=== PATIENT | male | born 1955 | race Caucasian/White ===

== ENCOUNTER 2020-12-13 14:48 | Inpatient (IN) | payer MEDICARE ==
[2020-12-13] MEDS ORDERED: Sodium Chloride 0.9% 10 ML Syringe FLUSH PRN (15:21)
--- NOTE | 2020-12-13 16:03 | CR ---
Chest: Portable view of the chest was obtained. Comparison: No prior chest imaging is available. Increased density is seen within both lung bases. Upper lungs appear to be clear. Heart size is normal. Tortuous thoracic aorta is seen. No discrete osseous abnormality is appreciated. Impression: 1. Increased density within both lung bases suspicious for bibasilar pneumonia. Diagnostic code #3
[2020-12-13] MEDS ORDERED: Potassium Chloride 20 MEQ Tab.ER PO ONE (16:28)
[2020-12-13] MEDS ORDERED: Potassium Chloride 10 MEQ in Premix Bag 1 BAG IV SCH (16:30)
[2020-12-13] MEDS ORDERED: cefTRIAXone 2 GM in Sodium Chloride 0.9% 100 ML IV ONE (16:34)
[2020-12-13] MEDS ORDERED: Ondansetron 4 MG Tab.DIS PO PRN (16:38)
[2020-12-13] MEDS ORDERED: Docusate Sodium 100 MG Cap PO PRN (16:38)
[2020-12-13] MEDS ORDERED: Morphine 2 MG/ML SYRINGE IVPUSH PRN (16:38)
[2020-12-13] MEDS ORDERED: Acetaminophen 325 MG Tab PO PRN (16:38)
[2020-12-13] MEDS: Sodium Chloride 0.9% with KCl 1,000 ML IV SCH (16:39)
--- NOTE | 2020-12-13 16:49 | EDM.PDOC ---
ED HPI GENERAL MEDICAL PROBLEM - General Chief Complaint: Respiratory Problem Stated Complaint: LOW OXYGEN/SENT BY [facility] Time Seen by Provider: 12/13/20 15:04 Source of Information: Reports: Patient, RN Notes Reviewed History Limitations: Reports: No Limitations - History of Present Illness INITIAL COMMENTS - FREE TEXT/NARRATIVE: Patient is a 65-year-old male presenting to the emergency department with complaints of a 1 week history of congestion, cough, shortness of breath, decreased appetite, and fever. He was around a individual who had nasal congestion on Friday of last week and feels that he may have caught something from him. He also feels that recent smoke in the air contributed to his illness. He is a former smoker and states that he gets bronchitis a year and history of antibiotics and then it clears up. He denies loss of taste and smell but states that he has not really eaten anything for a week due to loss of appetite. Reports fevers as high as 102.0 at home. Denies any chest pain. He has had no nausea, vomiting, or diarrhea. - Related Data Allergies Allergy/AdvReac Type Severity Reaction Status Date / Time No Known Allergies Allergy Verified 12/13/20 15:16 Home Meds: Home Meds Aspirin [Halfprin] 81 mg PO DAILY 12/13/20 [History] Metoprolol Tartrate 25 mg PO BID 12/13/20 [History] Non-Formulary Medication [NF Drug] 20 ml PO DAILY 12/13/20 [History] Simvastatin 40 mg PO BEDTIME 12/13/20 [History] amLODIPine [Norvasc] 10 mg PO DAILY 12/13/20 [History] Past Medical History Cardiovascular History: Reports: High Cholesterol, Hypertension Social & Family History - Tobacco Use Tobacco Use Status *Q: Current Every Day Tobacco User Years of Tobacco use: 40 Packs/Tins Daily: 0.5 - Recreational Drug Use Recreational Drug Use: No ED ROS GENERAL - Review of Systems Review Of Systems: See Below Constitutional: Reports: Fever, Chills, Fatigue, Decreased Appetite HEENT: Reports: Sinus Problem Respiratory: Reports: Shortness of Breath, Cough Cardiovascular: Reports: Dyspnea on Exertion, Orthopnea. Denies: Chest Pain Endocrine: Reports: No Symptoms GI/Abdominal: Reports: Decreased Appetite. Denies: Abdominal Pain, Diarrhea, Nausea, Vomiting : Reports: No Symptoms Musculoskeletal: Reports: No Symptoms Skin: Reports: No Symptoms Neurological: Reports: No Symptoms Psychiatric: Reports: No Symptoms Hematologic/Lymphatic: Reports: No Symptoms Immunologic: Reports: No Symptoms ED EXAM, GENERAL - Physical Exam Exam: See Below Exam Limited By: No Limitations General Appearance: Alert, WD/WN, No Apparent Distress Neck: Normal Inspection, Supple, Non-Tender, Full Range of Motion Respiratory/Chest: No Respiratory Distress, No Accessory Muscle Use, Chest Non- Tender, Rhonchi (throughout bilateral lungs) Cardiovascular: Normal Peripheral Pulses, Regular Rate, Rhythm, No Edema, No Gallop, No JVD, No Murmur, No Rub GI/Abdominal: Normal Bowel Sounds, Soft, Non-Tender, No Organomegaly, No Distention, No Abnormal Bruit, No Mass Neurological: Alert, Oriented, CN II-XII Intact, Normal Cognition, Normal Gait, Normal Reflexes, No Motor/Sensory Deficits Psychiatric: Normal Affect, Normal Mood Skin Exam: Warm, Dry, Intact, Normal Color, No Rash Course - Vital Signs Last Recorded V/S: Last Vital Signs Temp 98.8 F 12/14/20 20:14 Pulse 64 12/14/20 22:03 Resp 20 12/14/20 20:14 BP 144/93 H 12/14/20 22:03 Pulse Ox 91 L 12/14/20 22:09 - Orders/Labs/Meds Orders: Active Orders 24 hr Category Date Time Status BASIC METABOLIC PANEL,BMP [CHEM] AM Lab 12/15/20 05:11 Ordered BASIC METABOLIC PANEL,BMP [CHEM] AM Lab 12/16/20 05:11 Ordered BASIC METABOLIC PANEL,BMP [CHEM] AM Lab 12/17/20 05:11 Ordered CBC WITH AUTO DIFF [HEME] AM Lab 12/15/20 05:11 Ordered CBC WITH AUTO DIFF [HEME] AM Lab 12/16/20 05:11 Ordered CBC WITH AUTO DIFF [HEME] AM Lab 12/17/20 05:11 Ordered MAGNESIUM [CHEM] AM Lab 12/15/20 05:11 Ordered MAGNESIUM [CHEM] AM Lab 12/16/20 05:11 Ordered MAGNESIUM [CHEM] AM Lab 12/17/20 05:11 Ordered Famotidine [Pepcid] Med 12/14/20 09:00 Active 20 mg IVPUSH DAILY Medication Orders Acetaminophen (Acetaminophen 325 Mg Tab) 650 mg PO Q4H PRN PRN Reason: Pain (Mild 1-3)/fever Acetylcysteine (Acetylcysteine 20% 200 Mg/Ml 4 Ml Nebulizer Soln Sdv) 800 mg NEB Q6H [facility] Last Admin: 12/14/20 22:08 Dose: 800 mg Documented by: Admin: 12/14/20 17:17 Dose: 800 mg Documented by: Admin: 12/14/20 11:26 Dose: 800 mg Documented by: JAMAL Amlodipine Besylate (Amlodipine 5 Mg Tab) 10 mg PO DAILY [facility] Last Admin: 12/14/20 09:51 Dose: 10 mg Documented by: TIFFANY Aspirin (Aspirin 81 Mg Tab.Ec) 81 mg PO DAILY [facility] Last Admin: 12/14/20 09:50 Dose: 81 mg Documented by: TIFFANY Docusate Sodium (Docusate Sodium 100 Mg Cap) 100 mg PO Q12H PRN PRN Reason: Constipation Famotidine (Famotidine 20 Mg/2 Ml Sdv) 20 mg IVPUSH DAILY [facility] Last Admin: 12/14/20 08:24 Dose: 20 mg Documented by: TIFFANY Guaifenesin (Guaifenesin 600 Mg Tab.Er) 600 mg PO Q12H [facility] Last Admin: 12/14/20 22:03 Dose: 600 mg Documented by: Admin: 12/14/20 10:32 Dose: 600 mg Documented by: TIFFANY Heparin Sodium (Porcine) (Heparin Sodium 5,000 Units/Ml Vial) 5,000 units SUBCUT Q8H [facility] Last Admin: 12/14/20 22:04 Dose: 5,000 units Documented by: Admin: 12/14/20 16:18 Dose: 5,000 units Documented by: Admin: 12/14/20 08:24 Dose: 5,000 units Documented by: Admin: 12/14/20 00:35 Dose: 5,000 units Documented by: Admin: 12/13/20 18:21 Dose: 5,000 units Documented by: AMANDA Azithromycin 500 mg/ Sodium (Chloride) 250 mls @ 250 mls/hr IV Q24H [facility] Last Admin: 12/14/20 18:22 Dose: 250 mls/hr Documented by: Infusion: 12/13/20 19:21 Dose: 250 mls/hr Documented by: Admin: 12/13/20 18:21 Dose: 250 mls/hr Documented by: AMANDA Ceftriaxone Sodium 2 gm/ (Sodium Chloride) 100 mls @ 200 mls/hr IV Q24H [facility] Stop: 12/18/20 16:59 Last Admin: 12/14/20 16:19 Dose: 200 mls/hr Documented by: TIFFANY Metoprolol Tartrate (Metoprolol Tartrate 50 Mg Tab) 25 mg PO BID [facility] Last Admin: 12/14/20 22:03 Dose: 25 mg Documented by: Admin: 12/14/20 09:51 Dose: 25 mg Documented by: TIFFANY Ondansetron HCl (Ondansetron 4 Mg Tab.Dis) 4 mg PO Q4H PRN PRN Reason: nausea, able to take PO Simvastatin (Simvastatin 40 Mg Tab) 40 mg PO BEDTIME [facility] Last Admin: 12/14/20 22:03 Dose: 40 mg Documented by: KELVIN Sodium Chloride (Sodium Chloride 0.9% 10 Ml Syringe) 10 ml FLUSH ASDIRECTED PRN PRN Reason: Keep Vein Open Last Admin: 12/13/20 15:36 Dose: 10 ml Documented by: PETE Labs: Laboratory Tests 12/13/20 12/13/20 12/13/20 Range/Units 15:11 15:17 15:17 WBC 13.79 H (4.23-9.07) K/mm3 RBC 4.52 L (4.63-6.08) M/mm3 Hgb 14.6 (13.7-17.5) gm/dl Hct 42.6 (40.1-51.0) % MCV 94.2 H (79.0-92.2) fl MCH 32.3 H (25.7-32.2) pg MCHC 34.3 (32.2-35.5) g/dl RDW Std Deviation 46.5 H (35.1-43.9) fL Plt Count 280 (163-337) K/mm3 MPV 10.7 (9.4-12.3) fl Neut % (Auto) 79.4 H (34.0-67.9) % Lymph % (Auto) 8.9 L (21.8-53.1) % Bullock % (Auto) 10.7 (5.3-12.2) % Eos % (Auto) 0.4 L (0.8-7.0) Baso % (Auto) 0.3 (0.1-1.2) % Neut # (Auto) 10.94 H (1.78-5.38) K/mm3 Lymph # (Auto) 1.23 L (1.32-3.57) K/mm3 Bullock # (Auto) 1.48 H (0.30-0.82) K/mm3 Eos # (Auto) 0.06 (0.04-0.54) K/mm3 Baso # (Auto) 0.04 (0.01-0.08) K/mm3 Manual Slide Review Abnormal smear D-Dimer, Quantitative 0.62 H (0.19-0.50) mg/L Sodium (136-145) mEq/L Potassium (3.5-5.1) mEq/L Chloride (98-107) mEq/L Carbon Dioxide (21-32) mEq/L Anion Gap (5-15) BUN (7-18) mg/dL Creatinine (0.7-1.3) mg/dL Est Cr Clr Drug Dosing mL/min Estimated GFR (MDRD) (>60) mL/min BUN/Creatinine Ratio (14-18) Glucose (70-99) mg/dL Calcium (8.5-10.1) mg/dL Total Bilirubin (0.2-1.0) mg/dL AST (15-37) U/L ALT (16-63) U/L Alkaline Phosphatase (46-116) U/L Troponin I (0.00-0.056) ng/mL C-Reactive Protein (<1.0) mg/dL NT-Pro-B Natriuret Pep (0-125) pg/mL Total Protein (6.4-8.2) g/dl Albumin (3.4-5.0) g/dl Globulin gm/dL Albumin/Globulin Ratio (1-2) SARS-CoV-2 RNA (LD) Negative (NEGATIVE) 12/13/20 12/13/20 Range/Units 15:17 15:17 WBC (4.23-9.07) K/mm3 RBC (4.63-6.08) M/mm3 Hgb (13.7-17.5) gm/dl Hct (40.1-51.0) % MCV (79.0-92.2) fl MCH (25.7-32.2) pg MCHC (32.2-35.5) g/dl RDW Std Deviation (35.1-43.9) fL Plt Count (163-337) K/mm3 MPV (9.4-12.3) fl Neut % (Auto) (34.0-67.9) % Lymph % (Auto) (21.8-53.1) % Bullock % (Auto) (5.3-12.2) % Eos % (Auto) (0.8-7.0) Baso % (Auto) (0.1-1.2) % Neut # (Auto) (1.78-5.38) K/mm3 Lymph # (Auto) (1.32-3.57) K/mm3 Bullock # (Auto) (0.30-0.82) K/mm3 Eos # (Auto) (0.04-0.54) K/mm3 Baso # (Auto) (0.01-0.08) K/mm3 Manual Slide Review D-Dimer, Quantitative (0.19-0.50) mg/L Sodium 142 (136-145) mEq/L Potassium 2.9 L (3.5-5.1) mEq/L Chloride 102 (98-107) mEq/L Carbon Dioxide 30 (21-32) mEq/L Anion Gap 12.9 (5-15) BUN 13 (7-18) mg/dL Creatinine 1.3 (0.7-1.3) mg/dL Est Cr Clr Drug Dosing 40.06 mL/min Estimated GFR (MDRD) 55 (>60) mL/min BUN/Creatinine Ratio 10.0 L (14-18) Glucose 109 H (70-99) mg/dL Calcium 8.7 (8.5-10.1) mg/dL Total Bilirubin 0.8 (0.2-1.0) mg/dL AST 19 (15-37) U/L ALT 32 (16-63) U/L Alkaline Phosphatase 97 (46-116) U/L Troponin I < 0.017 (0.00-0.056) ng/mL C-Reactive Protein 16.5 H* (<1.0) mg/dL NT-Pro-B Natriuret Pep 308 H (0-125) pg/mL Total Protein 7.8 (6.4-8.2) g/dl Albumin 3.1 L (3.4-5.0) g/dl Globulin 4.7 gm/dL Albumin/Globulin Ratio 0.7 L (1-2) SARS-CoV-2 RNA (LD) (NEGATIVE) Meds: Medications Generic Name Dose Route Start Last Admin Trade Name Freq PRN Reason Stop Dose Admin Acetaminophen 650 mg 12/13/20 16:38 Acetaminophen 325 Mg Tab PO Q4H PRN Pain (Mild 1-3)/fever Acetylcysteine 800 mg 12/14/20 11:00 12/14/20 22:08 Acetylcysteine 20% 200 Mg/Ml 4 Ml Nebulizer Soln Sdv NEB 800 mg Q6H JUNAID Administration Amlodipine Besylate 10 mg 12/14/20 09:45 12/14/20 09:51 Amlodipine 5 Mg Tab PO 10 mg DAILY JUNAID Administration Aspirin 81 mg 12/14/20 09:45 12/14/20 09:50 Aspirin 81 Mg Tab.Ec PO 81 mg DAILY JUNAID Administration Docusate Sodium 100 mg 12/13/20 16:38 Docusate Sodium 100 Mg Cap PO Q12H PRN Constipation Famotidine 20 mg 12/14/20 09:00 12/14/20 08:24 Famotidine 20 Mg/2 Ml Sdv IVPUSH 20 mg DAILY JUNAID Administration Guaifenesin 600 mg 12/14/20 09:00 12/14/20 22:03 Guaifenesin 600 Mg Tab.Er PO 600 mg Q12H JUNAID Administration Heparin Sodium (Porcine) 5,000 units 12/13/20 16:45 12/14/20 22:04 Heparin Sodium 5,000 Units/Ml Vial SUBCUT 5,000 units Q8H JUNAID Administration Azithromycin 500 mg/ Sodium 250 mls @ 250 mls/hr 12/13/20 18:30 12/14/20 18:22 Chloride IV 250 mls/hr Q24H JUNAID Administration Ceftriaxone Sodium 2 gm/ 100 mls @ 200 mls/hr 12/14/20 16:30 12/14/20 16:19 Sodium Chloride IV 12/18/20 16:59 200 mls/hr Q24H JUNAID Administration Metoprolol Tartrate 25 mg 12/14/20 09:45 12/14/20 22:03 Metoprolol Tartrate 50 Mg Tab PO 25 mg BID JUNIAD Administration Ondansetron HCl 4 mg 12/13/20 16:38 Ondansetron 4 Mg Tab.Dis PO Q4H PRN nausea, able to take PO Simvastatin 40 mg 12/14/20 21:00 12/14/20 22:03 Simvastatin 40 Mg Tab PO 40 mg BEDTIME JUNAID Administration Sodium Chloride 10 ml 12/13/20 15:21 12/13/20 15:36 Sodium Chloride 0.9% 10 Ml Syringe FLUSH 10 ml ASDIRECTED PRN Administration Keep Vein Open Discontinued Medications Generic Name Dose Route Start Last Admin Trade Name Freq PRN Reason Stop Dose Admin Ceftriaxone Sodium 2 gm 12/14/20 16:45 Ceftriaxone 1 Gm Vial IV 12/18/20 16:46 Q24H JUNAID Potassium Chloride 10 meq/ 100 mls @ 100 mls/hr 12/13/20 16:30 Premix IV 12/13/20 22:29 Q1H JUNAID Potassium Chloride/Sodium Chloride 1,000 mls @ 150 mls/hr 12/13/20 16:30 12/14/20 08:25 Normal Saline With 40 Meq Kcl IV 150 mls/hr ASDIRECTED JUNAID Administration Ceftriaxone Sodium 2 gm/ 100 mls @ 200 mls/hr 12/13/20 16:34 12/13/20 17:07 Sodium Chloride IV 12/13/20 17:03 200 mls/hr ONETIME ONE Administration Azithromycin 500 mg/ Sodium 100 mls @ 100 mls/hr 12/13/20 16:45 12/13/20 18:28 Chloride IV Not Given Q24H JUNAID Azithromycin 500 mg/ Sodium 250 mls @ 250 mls/hr 12/13/20 18:19 12/13/20 18:29 Chloride IV Not Given Q24H JUNAID Morphine Sulfate 2 mg 12/13/20 16:38 Morphine 2 Mg/Ml Syringe IVPUSH 12/14/20 16:41 Q2H PRN Pain (severe 7-10) Potassium Chloride 40 meq 12/13/20 16:28 12/13/20 16:39 Potassium Chloride 20 Meq Tab.Er PO 12/13/20 16:29 40 meq ONETIME ONE Administration - Re-Assessments/Exams Free Text/Narrative Re-Assessment/Exam: Patient is a 65-year-old male presenting to the emergency department with complaints of a 1 week history of cough, congestion, fever, shortness of breath, loss of appetite, and fatigue. He has not been vaccinated against COVID-19. Oxygen saturation on arrival to ER was found to be 80% on room air. He is currently on 4 L of oxygen by nasal cannula saturating in the low 90s. Temperature was 100.4 temporally. On exam, patient has diffuse rhonchi throughout his lung holley. Exam is otherwise unremarkable. I have ordered blood work, EKG, chest x-ray, and Covid test. 12/13/20 16:47 Hematology significant for WBC elevated at 13.79, D-dimer minimally elevated 0.62 which is normal when adjusted for his age, potassium low at 2.9, CRP elevated 16.5, proBNP 308. Covid is negative. Troponin is undetectably low. Chest x-ray shows bibasilar pneumonia. I have ordered blood cultures and a lactic acid. We will give him 40 mill equivalents of oral potassium as well as start IV fluids of NS with 40 of KCl at 150 ml/hr. Once blood cultures and lactic acid are collected, we will give Rocephin 2 g IV. Case was discussed with hospitalist, Dr. Sim. She has accepted the patient for admission. Patient is in agreement with this plan. Departure - Departure Time of Disposition: 16:47 Disposition: Admitted As Inpatient 66 Condition: Good Clinical Impression: Hypoxia Pneumonia Qualifiers: Pneumonia type: due to unspecified organism Laterality: bilateral Lung location: lower lobe of lung Qualified Code(s): J18.9 - Pneumonia, unspecified organism - Discharge Information Sepsis Event Note (ED) - Evaluation Sepsis Screening Result: No Definite Risk
--- NOTE | 2020-12-13 17:35 | PCM.HP.2 ---
H&P History of Present Illness - General Date of Service: 12/13/20 Admit Problem/Dx: Admission Diagnosis/Problem Admission Diagnosis/Problem Pneumonia - History of Present Illness Initial Comments - Free Text/Narative: 65-year-old male with past medical history of hyperlipidemia, and hypertension who presents to the emergency room with worsening shortness of breath that has occurred gradually over the last week. Patient states the increased cough, shortness of breath, productive sputum. Is negative for COVID-19. Patient is also complaining about fatigue, malaise, muscle aches progressive over the last several days. Patient states nothing seems to make it better or worse. No pain is involved. Denies any chest pain, nausea vomiting diarrhea constipation sick contacts or recent travel. Onset of Symptoms: Reports: Gradual Duration of Symptoms: Reports: Day(s): Quality: Reports: Ache Worsens with: Reports: Breathing, Movement Associated Symptoms: Reports: Cough, cough w sputum, Malaise, Shortness of Breath, Weakness - Related Data Allergies/Adverse Reactions: Allergies Allergy/AdvReac Type Severity Reaction Status Date / Time No Known Allergies Allergy Verified 12/13/20 15:16 Home Medications: Home Meds Aspirin [Halfprin] 81 mg PO DAILY 12/13/20 [History] Metoprolol Tartrate 25 mg PO BID 12/13/20 [History] Non-Formulary Medication [NF Drug] 20 ml PO DAILY 12/13/20 [History] Simvastatin 40 mg PO BEDTIME 12/13/20 [History] amLODIPine [Norvasc] 10 mg PO DAILY 12/13/20 [History] Past Medical History Cardiovascular History: Reports: High Cholesterol, Hypertension Social & Family History - Tobacco Use Tobacco Use Status *Q: Current Every Day Tobacco User Years of Tobacco use: 40 Packs/Tins Daily: 0.5 - Recreational Drug Use Recreational Drug Use: No H&P Review of Systems - Review of Systems: Review Of Systems: See Below General: Reports: Fever, Chills, Malaise, Weakness, Fatigue HEENT: Reports: No Symptoms Pulmonary: Reports: Shortness of Breath, Cough Cardiovascular: Reports: No Symptoms, Dyspnea on Exertion Gastrointestinal: Reports: No Symptoms Genitourinary: Reports: No Symptoms Musculoskeletal: Reports: No Symptoms Skin: Reports: No Symptoms Psychiatric: Reports: No Symptoms Neurological: Reports: No Symptoms Hematologic/Lymphatic: Reports: No Symptoms Immunologic: Reports: No Symptoms Exam - Exam Exam: See Below - Vital Signs Vital Signs: Last Vital Signs Temp 100.4 F 12/13/20 15:12 Pulse 72 12/13/20 15:12 Resp 20 12/13/20 15:12 BP 164/98 H 12/13/20 15:12 Pulse Ox 80 L 12/13/20 15:12 Weight: 191 lb 12.8 oz - Exam General: Alert, Oriented HEENT: Conjunctiva Clear, EOMI Neck: Supple, Trachea Midline Lungs: Decreased Breath Sounds, Rhonchi Cardiovascular: Regular Rate, Regular Rhythm GI/Abdominal Exam: Normal Bowel Sounds, Soft Back Exam: Normal Inspection, Full Range of Motion Extremities: Normal Inspection, Normal Range of Motion Skin: Warm, Dry Neurological: Cranial Nerves Intact, Reflexes Equal Bilateral Neuro Extensive - Mental Status: Alert, Oriented x3 Psychiatric: Alert, Normal Affect, Normal Mood - Patient Data Lab Results Last 24 hrs: Laboratory Results - last 24 hr 12/13/20 12/13/20 12/13/20 Range/Units 15:11 15:17 15:17 WBC 13.79 H (4.23-9.07) K/mm3 RBC 4.52 L (4.63-6.08) M/mm3 Hgb 14.6 (13.7-17.5) gm/dl Hct 42.6 (40.1-51.0) % MCV 94.2 H (79.0-92.2) fl MCH 32.3 H (25.7-32.2) pg MCHC 34.3 (32.2-35.5) g/dl RDW Std Deviation 46.5 H (35.1-43.9) fL Plt Count 280 (163-337) K/mm3 MPV 10.7 (9.4-12.3) fl Neut % (Auto) 79.4 H (34.0-67.9) % Lymph % (Auto) 8.9 L (21.8-53.1) % Forest % (Auto) 10.7 (5.3-12.2) % Eos % (Auto) 0.4 L (0.8-7.0) Baso % (Auto) 0.3 (0.1-1.2) % Neut # (Auto) 10.94 H (1.78-5.38) K/mm3 Lymph # (Auto) 1.23 L (1.32-3.57) K/mm3 Forest # (Auto) 1.48 H (0.30-0.82) K/mm3 Eos # (Auto) 0.06 (0.04-0.54) K/mm3 Baso # (Auto) 0.04 (0.01-0.08) K/mm3 Manual Slide Review Abnormal smear D-Dimer, Quantitative 0.62 H (0.19-0.50) mg/L Sodium (136-145) mEq/L Potassium (3.5-5.1) mEq/L Chloride (98-107) mEq/L Carbon Dioxide (21-32) mEq/L Anion Gap (5-15) BUN (7-18) mg/dL Creatinine (0.7-1.3) mg/dL Est Cr Clr Drug Dosing mL/min Estimated GFR (MDRD) (>60) mL/min BUN/Creatinine Ratio (14-18) Glucose (70-99) mg/dL Calcium (8.5-10.1) mg/dL Total Bilirubin (0.2-1.0) mg/dL AST (15-37) U/L ALT (16-63) U/L Alkaline Phosphatase (46-116) U/L Troponin I (0.00-0.056) ng/mL C-Reactive Protein (<1.0) mg/dL NT-Pro-B Natriuret Pep (0-125) pg/mL Total Protein (6.4-8.2) g/dl Albumin (3.4-5.0) g/dl Globulin gm/dL Albumin/Globulin Ratio (1-2) SARS-CoV-2 RNA (LD) Negative (NEGATIVE) 12/13/20 12/13/20 Range/Units 15:17 15:17 WBC (4.23-9.07) K/mm3 RBC (4.63-6.08) M/mm3 Hgb (13.7-17.5) gm/dl Hct (40.1-51.0) % MCV (79.0-92.2) fl MCH (25.7-32.2) pg MCHC (32.2-35.5) g/dl RDW Std Deviation (35.1-43.9) fL Plt Count (163-337) K/mm3 MPV (9.4-12.3) fl Neut % (Auto) (34.0-67.9) % Lymph % (Auto) (21.8-53.1) % Forest % (Auto) (5.3-12.2) % Eos % (Auto) (0.8-7.0) Baso % (Auto) (0.1-1.2) % Neut # (Auto) (1.78-5.38) K/mm3 Lymph # (Auto) (1.32-3.57) K/mm3 Forest # (Auto) (0.30-0.82) K/mm3 Eos # (Auto) (0.04-0.54) K/mm3 Baso # (Auto) (0.01-0.08) K/mm3 Manual Slide Review D-Dimer, Quantitative (0.19-0.50) mg/L Sodium 142 (136-145) mEq/L Potassium 2.9 L (3.5-5.1) mEq/L Chloride 102 (98-107) mEq/L Carbon Dioxide 30 (21-32) mEq/L Anion Gap 12.9 (5-15) BUN 13 (7-18) mg/dL Creatinine 1.3 (0.7-1.3) mg/dL Est Cr Clr Drug Dosing 40.06 mL/min Estimated GFR (MDRD) 55 (>60) mL/min BUN/Creatinine Ratio 10.0 L (14-18) Glucose 109 H (70-99) mg/dL Calcium 8.7 (8.5-10.1) mg/dL Total Bilirubin 0.8 (0.2-1.0) mg/dL AST 19 (15-37) U/L ALT 32 (16-63) U/L Alkaline Phosphatase 97 (46-116) U/L Troponin I < 0.017 (0.00-0.056) ng/mL C-Reactive Protein 16.5 H* (<1.0) mg/dL NT-Pro-B Natriuret Pep 308 H (0-125) pg/mL Total Protein 7.8 (6.4-8.2) g/dl Albumin 3.1 L (3.4-5.0) g/dl Globulin 4.7 gm/dL Albumin/Globulin Ratio 0.7 L (1-2) SARS-CoV-2 RNA (LD) (NEGATIVE) Result Diagrams: 12/14/20 04:25 12/14/20 04:25 Sepsis Event Note - Evaluation Sepsis Screening Result: No Definite Risk - Focused Exam Vital Signs: Vital Signs Temp Pulse Resp BP Pulse Ox 12/13/20 15:12 100.4 F 72 20 164/98 H 80 L Problem List Initiated/Reviewed/Updated: Yes Orders Last 24hrs: Active Orders 24 hr Category Date Time Status Patient Status [ADT] Routine ADT 12/13/20 16:39 Active Bedrest Bathroom Privileges [RC] ASDIRECTED Care 12/13/20 16:38 Active Intake and Output Strict [RC] ASDIRECTED Care 12/13/20 16:38 Active Oxygen Therapy [RC] ASDIRECTED Care 12/13/20 16:39 Active Oxygen Therapy [RC] PRN Care 12/13/20 16:42 Active Peripheral IV Care [RC] . DIRECTED Care 12/13/20 15:21 Active Pneumonia Education [RC] Click to Edit Care 12/13/20 16:42 Active Pulse Oximetry [RC] CONTINUOUS Care 12/13/20 16:40 Active RT Chest Physiotherapy [RC] ASDIRECTED Care 12/13/20 16:38 Active RT Incentive Spirometry [RC] ASDIRECTED Care 12/13/20 16:38 Active Vital Signs [RC] Q6H Care 12/13/20 16:39 Active OT Evaluation and Treatment [CONS] Routine Cons 12/13/20 16:41 Active PT Evaluation and Treatment [CONS] Routine Cons 12/13/20 16:41 Active Regular Diet [DIET] Diet 12/13/20 Dinner Active BASIC METABOLIC PANEL,BMP [CHEM] AM Lab 12/14/20 05:11 Ordered BASIC METABOLIC PANEL,BMP [CHEM] AM Lab 12/15/20 05:11 Ordered BASIC METABOLIC PANEL,BMP [CHEM] AM Lab 12/16/20 05:11 Ordered BASIC METABOLIC PANEL,BMP [CHEM] AM Lab 12/17/20 05:11 Ordered BLOOD CULTURE [MREF] Stat Lab 12/13/20 16:42 Ordered BLOOD CULTURE [MREF] Stat Lab 12/13/20 16:42 Ordered BLOOD CULTURE [MREF] Stat Lab 12/13/20 17:03 Received BLOOD CULTURE [MREF] Stat Lab 12/13/20 17:09 Received CBC WITH AUTO DIFF [HEME] AM Lab 12/14/20 05:11 Ordered CBC WITH AUTO DIFF [HEME] AM Lab 12/15/20 05:11 Ordered CBC WITH AUTO DIFF [HEME] AM Lab 12/16/20 05:11 Ordered CBC WITH AUTO DIFF [HEME] AM Lab 12/17/20 05:11 Ordered LACTIC ACID [CHEM] Stat Lab 12/13/20 17:09 Received MAGNESIUM [CHEM] AM Lab 12/14/20 05:11 Ordered MAGNESIUM [CHEM] AM Lab 12/15/20 05:11 Ordered MAGNESIUM [CHEM] AM Lab 12/16/20 05:11 Ordered MAGNESIUM [CHEM] AM Lab 12/17/20 05:11 Ordered Acetaminophen [TylenoL] Med 12/13/20 16:38 Active 650 mg PO Q4H PRN Azithromycin [Zithromax] 500 mg Med 12/13/20 16:45 Active Sodium Chloride 0.9% [Normal Saline (AdvBag)] 100 ml IV Q24H Docusate Sodium [Colace] Med 12/13/20 16:38 Active 100 mg PO Q12H PRN Famotidine [Pepcid] Med 12/14/20 09:00 Active 20 mg IVPUSH DAILY Heparin Sodium Med 12/13/20 16:45 Active 5,000 units SUBCUT Q8H Morphine Med 12/13/20 16:38 Active 2 mg IVPUSH Q2H PRN Ondansetron [Zofran ODT] Med 12/13/20 16:38 Active 4 mg PO Q4H PRN Sodium Chloride 0.9% [Saline Flush] Med 12/13/20 15:21 Active 10 ml FLUSH ASDIRECTED PRN Sodium Chloride 0.9% with KCl [Normal Saline with 40 Med 12/13/20 16:30 Active mEq KCl] 1,000 ml IV ASDIRECTED cefTRIAXone [Rocephin] Med 12/14/20 16:45 Active 2 gm IV Q24H Blood Culture x2 Reflex Set [OM.PC] Stat Oth 12/13/20 16:24 Ordered Blood Culture x2 Reflex Set [OM.PC] Stat Oth 12/13/20 16:42 Ordered Peripheral IV Insertion Adult [OM.PC] Stat Oth 12/13/20 15:21 Ordered Resuscitation Status Routine Resus Stat 12/13/20 16:38 Ordered Medication Orders Acetaminophen (Acetaminophen 325 Mg Tab) 650 mg PO Q4H PRN PRN Reason: Pain (Mild 1-3)/fever Ceftriaxone Sodium (Ceftriaxone 1 Gm Vial) 2 gm IV Q24H [facility] Stop: 12/18/20 16:46 Docusate Sodium (Docusate Sodium 100 Mg Cap) 100 mg PO Q12H PRN PRN Reason: Constipation Famotidine (Famotidine 20 Mg/2 Ml Sdv) 20 mg IVPUSH DAILY [facility] Heparin Sodium (Porcine) (Heparin Sodium 5,000 Units/Ml Vial) 5,000 units SUBCUT Q8H [facility] Potassium Chloride/Sodium Chloride (Normal Saline With 40 Meq Kcl) 1,000 mls @ 150 mls/hr IV ASDIRECTED JUNAID Last Admin: 12/13/20 16:39 Dose: 150 mls/hr Documented by: PETE Azithromycin 500 mg/ Sodium (Chloride) 100 mls @ 100 mls/hr IV Q24H JUNAID Morphine Sulfate (Morphine 2 Mg/Ml Syringe) 2 mg IVPUSH Q2H PRN PRN Reason: Pain (severe 7-10) Stop: 12/14/20 16:41 Ondansetron HCl (Ondansetron 4 Mg Tab.Dis) 4 mg PO Q4H PRN PRN Reason: nausea, able to take PO Sodium Chloride (Sodium Chloride 0.9% 10 Ml Syringe) 10 ml FLUSH ASDIRECTED PRN PRN Reason: Keep Vein Open Last Admin: 12/13/20 15:36 Dose: 10 ml Documented by: PETE Assessment/Plan Comment:: 1. Acute community-acquired pneumonia-continue Rocephin and azithromycin that was started in the emergency room. Also continue with DuoNeb. mucinex Oxygen, RT, I-S, Acapella IV hydration 2. hypokalemia-likely associated with muscle aches. Has been replaced by oral and IV in the emergency room. Will repeat labs in the a.m. 3. hyperlipidemia-continue home medications 4. Hypertension-as needed hydralazine 5. elevated CRP-is likely reactive. Will watch labs ppx heparin full code 80 min - Mortality Measure Prognosis:: Good
[2020-12-13] MEDS ORDERED: Azithromycin 500 MG in Sodium Chloride 0.9% 250 ML IV SCH (18:19)
[2020-12-13] MEDS: Azithromycin 500 MG in Sodium Chloride 0.9% 250 ML IV SCH (18:21)
[2020-12-13] MEDS: Heparin Sodium 5,000 Units/ML Vial SUBCUT SCH (18:21)
[2020-12-14] MEDS: Heparin Sodium 5,000 Units/ML Vial SUBCUT SCH ×5 (00:35→23:56)
[2020-12-14] MEDS: Sodium Chloride 0.9% with KCl 1,000 ML IV SCH ×2 (00:35→08:25)
[2020-12-14] MEDS: Famotidine 20 MG/2 ML SDV IVPUSH SCH (08:24)
[2020-12-14] MEDS: Aspirin 81 MG Tab.EC PO SCH (09:50)
--- NOTE | 2020-12-14 09:50 | PCM.PN ---
- General Info Date of Service: 12/14/20 Subjective Update: Patient has improved to 3.5 liters overnight. he is ambulating well. Cont on present meds Functional Status: Reports: Pain Controlled, Tolerating Diet, Ambulating - Review of Systems General: Reports: Weakness, Fatigue HEENT: Reports: No Symptoms Pulmonary: Reports: Shortness of Breath, Sputum Cardiovascular: Reports: No Symptoms Gastrointestinal: Reports: No Symptoms Genitourinary: Reports: No Symptoms Musculoskeletal: Reports: No Symptoms Skin: Reports: No Symptoms Neurological: Reports: No Symptoms Psychiatric: Reports: No Symptoms - Patient Data Vitals - Most Recent: Last Vital Signs Temp 98.4 F 12/14/20 08:05 Pulse 62 12/14/20 08:05 Resp 20 12/14/20 08:05 BP 146/93 H 12/14/20 08:23 Pulse Ox 91 L 12/14/20 08:05 Weight - Most Recent: 189 lb 9.6 oz I&O - Last 24 Hours: Intake & Output 12/13/20 12/14/20 12/14/20 22:59 06:59 14:59 Intake Total 240 2357 Output Total 100 Balance 240 2257 Lab Results Last 24 Hours: Laboratory Results - last 24 hr 12/13/20 12/13/20 12/13/20 Range/Units 15:11 15:17 15:17 WBC 13.79 H (4.23-9.07) K/mm3 RBC 4.52 L (4.63-6.08) M/mm3 Hgb 14.6 (13.7-17.5) gm/dl Hct 42.6 (40.1-51.0) % MCV 94.2 H (79.0-92.2) fl MCH 32.3 H (25.7-32.2) pg MCHC 34.3 (32.2-35.5) g/dl RDW Std Deviation 46.5 H (35.1-43.9) fL Plt Count 280 (163-337) K/mm3 MPV 10.7 (9.4-12.3) fl Neut % (Auto) 79.4 H (34.0-67.9) % Lymph % (Auto) 8.9 L (21.8-53.1) % [place] % (Auto) 10.7 (5.3-12.2) % Eos % (Auto) 0.4 L (0.8-7.0) Baso % (Auto) 0.3 (0.1-1.2) % Neut # (Auto) 10.94 H (1.78-5.38) K/mm3 Lymph # (Auto) 1.23 L (1.32-3.57) K/mm3 [place] # (Auto) 1.48 H (0.30-0.82) K/mm3 Eos # (Auto) 0.06 (0.04-0.54) K/mm3 Baso # (Auto) 0.04 (0.01-0.08) K/mm3 Manual Slide Review Abnormal smear D-Dimer, Quantitative 0.62 H (0.19-0.50) mg/L Sodium (136-145) mEq/L Potassium (3.5-5.1) mEq/L Chloride (98-107) mEq/L Carbon Dioxide (21-32) mEq/L Anion Gap (5-15) BUN (7-18) mg/dL Creatinine (0.7-1.3) mg/dL Est Cr Clr Drug Dosing mL/min Estimated GFR (MDRD) (>60) mL/min BUN/Creatinine Ratio (14-18) Glucose (70-99) mg/dL Lactic Acid (0.4-2.0) mmol/L Calcium (8.5-10.1) mg/dL Magnesium (1.8-2.4) mg/dL Total Bilirubin (0.2-1.0) mg/dL AST (15-37) U/L ALT (16-63) U/L Alkaline Phosphatase (46-116) U/L Troponin I (0.00-0.056) ng/mL C-Reactive Protein (<1.0) mg/dL NT-Pro-B Natriuret Pep (0-125) pg/mL Total Protein (6.4-8.2) g/dl Albumin (3.4-5.0) g/dl Globulin gm/dL Albumin/Globulin Ratio (1-2) SARS-CoV-2 RNA (LD) Negative (NEGATIVE) 12/13/20 12/13/20 12/13/20 Range/Units 15:17 15:17 17:09 WBC (4.23-9.07) K/mm3 RBC (4.63-6.08) M/mm3 Hgb (13.7-17.5) gm/dl Hct (40.1-51.0) % MCV (79.0-92.2) fl MCH (25.7-32.2) pg MCHC (32.2-35.5) g/dl RDW Std Deviation (35.1-43.9) fL Plt Count (163-337) K/mm3 MPV (9.4-12.3) fl Neut % (Auto) (34.0-67.9) % Lymph % (Auto) (21.8-53.1) % [place] % (Auto) (5.3-12.2) % Eos % (Auto) (0.8-7.0) Baso % (Auto) (0.1-1.2) % Neut # (Auto) (1.78-5.38) K/mm3 Lymph # (Auto) (1.32-3.57) K/mm3 [place] # (Auto) (0.30-0.82) K/mm3 Eos # (Auto) (0.04-0.54) K/mm3 Baso # (Auto) (0.01-0.08) K/mm3 Manual Slide Review D-Dimer, Quantitative (0.19-0.50) mg/L Sodium 142 (136-145) mEq/L Potassium 2.9 L (3.5-5.1) mEq/L Chloride 102 (98-107) mEq/L Carbon Dioxide 30 (21-32) mEq/L Anion Gap 12.9 (5-15) BUN 13 (7-18) mg/dL Creatinine 1.3 (0.7-1.3) mg/dL Est Cr Clr Drug Dosing 40.06 mL/min Estimated GFR (MDRD) 55 (>60) mL/min BUN/Creatinine Ratio 10.0 L (14-18) Glucose 109 H (70-99) mg/dL Lactic Acid 0.9 (0.4-2.0) mmol/L Calcium 8.7 (8.5-10.1) mg/dL Magnesium (1.8-2.4) mg/dL Total Bilirubin 0.8 (0.2-1.0) mg/dL AST 19 (15-37) U/L ALT 32 (16-63) U/L Alkaline Phosphatase 97 (46-116) U/L Troponin I < 0.017 (0.00-0.056) ng/mL C-Reactive Protein 16.5 H* (<1.0) mg/dL NT-Pro-B Natriuret Pep 308 H (0-125) pg/mL Total Protein 7.8 (6.4-8.2) g/dl Albumin 3.1 L (3.4-5.0) g/dl Globulin 4.7 gm/dL Albumin/Globulin Ratio 0.7 L (1-2) SARS-CoV-2 RNA (LD) (NEGATIVE) 12/14/20 12/14/20 Range/Units 04:25 04:25 WBC 11.34 H (4.23-9.07) K/mm3 RBC 3.98 L (4.63-6.08) M/mm3 Hgb 12.8 L D (13.7-17.5) gm/dl Hct 38.2 L (40.1-51.0) % MCV 96.0 H (79.0-92.2) fl MCH 32.2 (25.7-32.2) pg MCHC 33.5 (32.2-35.5) g/dl RDW Std Deviation 47.7 H (35.1-43.9) fL Plt Count 245 (163-337) K/mm3 MPV 10.9 (9.4-12.3) fl Neut % (Auto) 69.7 H (34.0-67.9) % Lymph % (Auto) 18.3 L (21.8-53.1) % [place] % (Auto) 10.4 (5.3-12.2) % Eos % (Auto) 1.1 (0.8-7.0) Baso % (Auto) 0.3 (0.1-1.2) % Neut # (Auto) 7.92 H (1.78-5.38) K/mm3 Lymph # (Auto) 2.07 (1.32-3.57) K/mm3 [place] # (Auto) 1.18 H (0.30-0.82) K/mm3 Eos # (Auto) 0.12 (0.04-0.54) K/mm3 Baso # (Auto) 0.03 (0.01-0.08) K/mm3 Manual Slide Review D-Dimer, Quantitative (0.19-0.50) mg/L Sodium 144 (136-145) mEq/L Potassium 3.5 (3.5-5.1) mEq/L Chloride 108 H (98-107) mEq/L Carbon Dioxide 26 (21-32) mEq/L Anion Gap 13.5 (5-15) BUN 10 (7-18) mg/dL Creatinine 1.0 (0.7-1.3) mg/dL Est Cr Clr Drug Dosing 80.83 mL/min Estimated GFR (MDRD) > 60 (>60) mL/min BUN/Creatinine Ratio 10.0 L (14-18) Glucose 90 (70-99) mg/dL Lactic Acid (0.4-2.0) mmol/L Calcium 8.1 L (8.5-10.1) mg/dL Magnesium 2.2 (1.8-2.4) mg/dL Total Bilirubin (0.2-1.0) mg/dL AST (15-37) U/L ALT (16-63) U/L Alkaline Phosphatase (46-116) U/L Troponin I (0.00-0.056) ng/mL C-Reactive Protein (<1.0) mg/dL NT-Pro-B Natriuret Pep (0-125) pg/mL Total Protein (6.4-8.2) g/dl Albumin (3.4-5.0) g/dl Globulin gm/dL Albumin/Globulin Ratio (1-2) SARS-CoV-2 RNA (LD) (NEGATIVE) Med Orders - Current: Current Medications Acetaminophen (Acetaminophen 325 Mg Tab) 650 mg PO Q4H PRN PRN Reason: Pain (Mild 1-3)/fever Amlodipine Besylate (Amlodipine 5 Mg Tab) 10 mg PO DAILY [facility] Aspirin (Aspirin 81 Mg Tab.Ec) 81 mg PO DAILY [facility] Docusate Sodium (Docusate Sodium 100 Mg Cap) 100 mg PO Q12H PRN PRN Reason: Constipation Famotidine (Famotidine 20 Mg/2 Ml Sdv) 20 mg IVPUSH DAILY [facility] Last Admin: 12/14/20 08:24 Dose: 20 mg Documented by: Heparin Sodium (Porcine) (Heparin Sodium 5,000 Units/Ml Vial) 5,000 units SUBCUT Q8H [facility] Last Admin: 12/14/20 08:24 Dose: 5,000 units Documented by: Potassium Chloride/Sodium Chloride (Normal Saline With 40 Meq Kcl) 1,000 mls @ 150 mls/hr IV ASDIRECTED [facility] Last Admin: 12/14/20 08:25 Dose: 150 mls/hr Documented by: Azithromycin 500 mg/ Sodium (Chloride) 250 mls @ 250 mls/hr IV Q24H [facility] Last Admin: 12/13/20 18:21 Dose: 250 mls/hr Documented by: Ceftriaxone Sodium 2 gm/ (Sodium Chloride) 100 mls @ 200 mls/hr IV Q24H [facility] Stop: 12/18/20 16:59 Metoprolol Tartrate (Metoprolol Tartrate 50 Mg Tab) 25 mg PO BID [facility] Morphine Sulfate (Morphine 2 Mg/Ml Syringe) 2 mg IVPUSH Q2H PRN PRN Reason: Pain (severe 7-10) Stop: 12/14/20 16:41 Non-Formulary Medication (Non-Formulary Medication 1 Each) each PO DAILY [facility] Ondansetron HCl (Ondansetron 4 Mg Tab.Dis) 4 mg PO Q4H PRN PRN Reason: nausea, able to take PO Simvastatin (Simvastatin 40 Mg Tab) 40 mg PO BEDTIME [facility] Sodium Chloride (Sodium Chloride 0.9% 10 Ml Syringe) 10 ml FLUSH ASDIRECTED PRN PRN Reason: Keep Vein Open Last Admin: 12/13/20 15:36 Dose: 10 ml Documented by: Discontinued Medications Ceftriaxone Sodium (Ceftriaxone 1 Gm Vial) 2 gm IV Q24H [facility] Stop: 12/18/20 16:46 Potassium Chloride 10 meq/ (Premix) 100 mls @ 100 mls/hr IV Q1H [facility] Stop: 12/13/20 22:29 Ceftriaxone Sodium 2 gm/ (Sodium Chloride) 100 mls @ 200 mls/hr IV ONETIME ONE Stop: 12/13/20 17:03 Last Admin: 12/13/20 17:07 Dose: 200 mls/hr Documented by: Azithromycin 500 mg/ Sodium (Chloride) 100 mls @ 100 mls/hr IV Q24H [facility] Last Admin: 12/13/20 18:28 Dose: Not Given Documented by: Azithromycin 500 mg/ Sodium (Chloride) 250 mls @ 250 mls/hr IV Q24H [facility] Last Admin: 12/13/20 18:29 Dose: Not Given Documented by: Potassium Chloride (Potassium Chloride 20 Meq Tab.Er) 40 meq PO ONETIME ONE Stop: 12/13/20 16:29 Last Admin: 12/13/20 16:39 Dose: 40 meq Documented by: - Exam Quality Assessment: Supplemental Oxygen General: Alert, Oriented, Cooperative, Mild Distress (with ambulation) HEENT: Pupils Equal, Pupils Reactive, EOMI Neck: Supple Lungs: Decreased Breath Sounds, Crackles, Rales GI/Abdominal Exam: Normal Bowel Sounds Skin: Warm, Dry Neurological: No New Focal Deficit Psy/Mental Status: Alert, Normal Affect - Patient Data Lab Results Last 24 hrs: Laboratory Results - last 24 hr 12/13/20 12/13/20 12/13/20 Range/Units 15:11 15:17 15:17 WBC 13.79 H (4.23-9.07) K/mm3 RBC 4.52 L (4.63-6.08) M/mm3 Hgb 14.6 (13.7-17.5) gm/dl Hct 42.6 (40.1-51.0) % MCV 94.2 H (79.0-92.2) fl MCH 32.3 H (25.7-32.2) pg MCHC 34.3 (32.2-35.5) g/dl RDW Std Deviation 46.5 H (35.1-43.9) fL Plt Count 280 (163-337) K/mm3 MPV 10.7 (9.4-12.3) fl Neut % (Auto) 79.4 H (34.0-67.9) % Lymph % (Auto) 8.9 L (21.8-53.1) % [place] % (Auto) 10.7 (5.3-12.2) % Eos % (Auto) 0.4 L (0.8-7.0) Baso % (Auto) 0.3 (0.1-1.2) % Neut # (Auto) 10.94 H (1.78-5.38) K/mm3 Lymph # (Auto) 1.23 L (1.32-3.57) K/mm3 [place] # (Auto) 1.48 H (0.30-0.82) K/mm3 Eos # (Auto) 0.06 (0.04-0.54) K/mm3 Baso # (Auto) 0.04 (0.01-0.08) K/mm3 Manual Slide Review Abnormal smear D-Dimer, Quantitative 0.62 H (0.19-0.50) mg/L Sodium (136-145) mEq/L Potassium (3.5-5.1) mEq/L Chloride (98-107) mEq/L Carbon Dioxide (21-32) mEq/L Anion Gap (5-15) BUN (7-18) mg/dL Creatinine (0.7-1.3) mg/dL Est Cr Clr Drug Dosing mL/min Estimated GFR (MDRD) (>60) mL/min BUN/Creatinine Ratio (14-18) Glucose (70-99) mg/dL Lactic Acid (0.4-2.0) mmol/L Calcium (8.5-10.1) mg/dL Magnesium (1.8-2.4) mg/dL Total Bilirubin (0.2-1.0) mg/dL AST (15-37) U/L ALT (16-63) U/L Alkaline Phosphatase (46-116) U/L Troponin I (0.00-0.056) ng/mL C-Reactive Protein (<1.0) mg/dL NT-Pro-B Natriuret Pep (0-125) pg/mL Total Protein (6.4-8.2) g/dl Albumin (3.4-5.0) g/dl Globulin gm/dL Albumin/Globulin Ratio (1-2) SARS-CoV-2 RNA (LD) Negative (NEGATIVE) 12/13/20 12/13/20 12/13/20 Range/Units 15:17 15:17 17:09 WBC (4.23-9.07) K/mm3 RBC (4.63-6.08) M/mm3 Hgb (13.7-17.5) gm/dl Hct (40.1-51.0) % MCV (79.0-92.2) fl MCH (25.7-32.2) pg MCHC (32.2-35.5) g/dl RDW Std Deviation (35.1-43.9) fL Plt Count (163-337) K/mm3 MPV (9.4-12.3) fl Neut % (Auto) (34.0-67.9) % Lymph % (Auto) (21.8-53.1) % [place] % (Auto) (5.3-12.2) % Eos % (Auto) (0.8-7.0) Baso % (Auto) (0.1-1.2) % Neut # (Auto) (1.78-5.38) K/mm3 Lymph # (Auto) (1.32-3.57) K/mm3 [place] # (Auto) (0.30-0.82) K/mm3 Eos # (Auto) (0.04-0.54) K/mm3 Baso # (Auto) (0.01-0.08) K/mm3 Manual Slide Review D-Dimer, Quantitative (0.19-0.50) mg/L Sodium 142 (136-145) mEq/L Potassium 2.9 L (3.5-5.1) mEq/L Chloride 102 (98-107) mEq/L Carbon Dioxide 30 (21-32) mEq/L Anion Gap 12.9 (5-15) BUN 13 (7-18) mg/dL Creatinine 1.3 (0.7-1.3) mg/dL Est Cr Clr Drug Dosing 40.06 mL/min Estimated GFR (MDRD) 55 (>60) mL/min BUN/Creatinine Ratio 10.0 L (14-18) Glucose 109 H (70-99) mg/dL Lactic Acid 0.9 (0.4-2.0) mmol/L Calcium 8.7 (8.5-10.1) mg/dL Magnesium (1.8-2.4) mg/dL Total Bilirubin 0.8 (0.2-1.0) mg/dL AST 19 (15-37) U/L ALT 32 (16-63) U/L Alkaline Phosphatase 97 (46-116) U/L Troponin I < 0.017 (0.00-0.056) ng/mL C-Reactive Protein 16.5 H* (<1.0) mg/dL NT-Pro-B Natriuret Pep 308 H (0-125) pg/mL Total Protein 7.8 (6.4-8.2) g/dl Albumin 3.1 L (3.4-5.0) g/dl Globulin 4.7 gm/dL Albumin/Globulin Ratio 0.7 L (1-2) SARS-CoV-2 RNA (LD) (NEGATIVE) 12/14/20 12/14/20 Range/Units 04:25 04:25 WBC 11.34 H (4.23-9.07) K/mm3 RBC 3.98 L (4.63-6.08) M/mm3 Hgb 12.8 L D (13.7-17.5) gm/dl Hct 38.2 L (40.1-51.0) % MCV 96.0 H (79.0-92.2) fl MCH 32.2 (25.7-32.2) pg MCHC 33.5 (32.2-35.5) g/dl RDW Std Deviation 47.7 H (35.1-43.9) fL Plt Count 245 (163-337) K/mm3 MPV 10.9 (9.4-12.3) fl Neut % (Auto) 69.7 H (34.0-67.9) % Lymph % (Auto) 18.3 L (21.8-53.1) % [place] % (Auto) 10.4 (5.3-12.2) % Eos % (Auto) 1.1 (0.8-7.0) Baso % (Auto) 0.3 (0.1-1.2) % Neut # (Auto) 7.92 H (1.78-5.38) K/mm3 Lymph # (Auto) 2.07 (1.32-3.57) K/mm3 [place] # (Auto) 1.18 H (0.30-0.82) K/mm3 Eos # (Auto) 0.12 (0.04-0.54) K/mm3 Baso # (Auto) 0.03 (0.01-0.08) K/mm3 Manual Slide Review D-Dimer, Quantitative (0.19-0.50) mg/L Sodium 144 (136-145) mEq/L Potassium 3.5 (3.5-5.1) mEq/L Chloride 108 H (98-107) mEq/L Carbon Dioxide 26 (21-32) mEq/L Anion Gap 13.5 (5-15) BUN 10 (7-18) mg/dL Creatinine 1.0 (0.7-1.3) mg/dL Est Cr Clr Drug Dosing 80.83 mL/min Estimated GFR (MDRD) > 60 (>60) mL/min BUN/Creatinine Ratio 10.0 L (14-18) Glucose 90 (70-99) mg/dL Lactic Acid (0.4-2.0) mmol/L Calcium 8.1 L (8.5-10.1) mg/dL Magnesium 2.2 (1.8-2.4) mg/dL Total Bilirubin (0.2-1.0) mg/dL AST (15-37) U/L ALT (16-63) U/L Alkaline Phosphatase (46-116) U/L Troponin I (0.00-0.056) ng/mL C-Reactive Protein (<1.0) mg/dL NT-Pro-B Natriuret Pep (0-125) pg/mL Total Protein (6.4-8.2) g/dl Albumin (3.4-5.0) g/dl Globulin gm/dL Albumin/Globulin Ratio (1-2) SARS-CoV-2 RNA (LD) (NEGATIVE) Result Diagrams: 12/14/20 04:25 12/14/20 04:25 Sepsis Event Note - Evaluation Sepsis Screening Result: No Definite Risk - Focused Exam Vital Signs: Vital Signs Temp Pulse Resp BP Pulse Ox Pulse Ox 12/14/20 08:23 146/93 H 12/14/20 08:05 98.4 F 62 20 144/101 H 91 L 12/14/20 06:01 94 L 12/14/20 03:57 98.2 F 59 L 18 143/88 H 93 L - Problem List Review Problem List Initiated/Reviewed/Updated: Yes - My Orders Last 24 Hours: My Active Orders 12/13/20 16:38 RT Chest Physiotherapy [RC] ASDIRECTED RT Incentive Spirometry [RC] ASDIRECTED Acetaminophen [TylenoL] 650 mg PO Q4H PRN Docusate Sodium [Colace] 100 mg PO Q12H PRN Morphine 2 mg IVPUSH Q2H PRN Ondansetron [Zofran ODT] 4 mg PO Q4H PRN Resuscitation Status Routine 12/13/20 16:39 Patient Status [ADT] Routine Oxygen Therapy [RC] ASDIRECTED Vital Signs [RC] 10,16,22,04 12/13/20 16:40 Pulse Oximetry [RC] CONTINUOUS 12/13/20 16:41 OT Evaluation and Treatment [CONS] Routine PT Evaluation and Treatment [CONS] Routine 12/13/20 16:42 Oxygen Therapy [RC] PRN Pneumonia Education [RC] Click to Edit Blood Culture x2 Reflex Set [OM.PC] Stat 12/13/20 16:45 Heparin Sodium 5,000 units SUBCUT Q8H 12/13/20 Dinner Regular Diet [DIET] 12/13/20 18:30 Azithromycin [Zithromax] 500 mg Sodium Chloride 0.9% [Normal Saline (AdvBag)] 250 ml IV Q24H 12/13/20 22:08 Up With Assistance [RC] ASDIRECTED 12/14/20 09:00 Famotidine [Pepcid] 20 mg IVPUSH DAILY 12/14/20 09:45 Aspirin [Halfprin] 81 mg PO DAILY Metoprolol Tartrate [Lopressor] 25 mg PO BID Non-Formulary Medication [NF Drug] 20 ml PO DAILY amLODIPine [Norvasc] 10 mg PO DAILY 12/14/20 16:30 cefTRIAXone [Rocephin] 2 gm Sodium Chloride 0.9% [Normal Saline] 100 ml IV Q24H 12/14/20 21:00 Simvastatin [Zocor] 40 mg PO BEDTIME 12/15/20 05:11 BASIC METABOLIC PANEL,BMP [CHEM] AM CBC WITH AUTO DIFF [HEME] AM MAGNESIUM [CHEM] AM 12/16/20 05:11 BASIC METABOLIC PANEL,BMP [CHEM] AM CBC WITH AUTO DIFF [HEME] AM MAGNESIUM [CHEM] AM 12/17/20 05:11 BASIC METABOLIC PANEL,BMP [CHEM] AM CBC WITH AUTO DIFF [HEME] AM MAGNESIUM [CHEM] AM - Plan Plan:: 1. Acute community-acquired pneumonia-continue Rocephin and azithromycin that was started in the emergency room. Also continue with DuoNeb. mucinex Oxygen, RT, I-S, Acapella IV hydration 12/14/20 mild improvement on antibiotics on 3.5 liters this am. Patient does have a significant amount of mucus plugging. We will give Mucomyst at least once but we will try to schedule this and possibly reduce his O2 requirements. The patient is requesting that he goes home by tomorrow. We will push for this. 2. hypokalemia-likely associated with muscle aches. Has been replaced by oral and IV in the emergency room. Will repeat labs in the a.m. 12/14 resolved 3. hyperlipidemia-continue home medications 4. Hypertension-as needed hydralazine 12/14 at home medications 5. elevated CRP-is likely reactive. Will watch labs ppx heparin full code 36 min
[2020-12-14] MEDS: amLODIPine 5 MG Tab PO SCH (09:51)
[2020-12-14] MEDS: Metoprolol Tartrate 50 MG Tab PO SCH ×2 (09:51→22:03)
[2020-12-14] MEDS: guaiFENesin 600 MG Tab.ER PO SCH ×2 (10:32→22:03)
[2020-12-14] MEDS: Acetylcysteine 20% 200 MG/ML 4 ML Nebulizer Soln SDV NEB SCH ×3 (11:26→22:08)
[2020-12-14] MEDS ORDERED: cefTRIAXone 2 GM in Sodium Chloride 0.9% 100 ML IV SCH (16:30)
[2020-12-14] MEDS ORDERED: cefTRIAXone 1 GM Vial IV SCH (16:45)
[2020-12-14] MEDS: Azithromycin 500 MG in Sodium Chloride 0.9% 250 ML IV SCH (18:22)
[2020-12-14] MEDS ORDERED: Simvastatin 40 MG Tab PO SCH (21:00)
[2020-12-15] MEDS: Acetylcysteine 20% 200 MG/ML 4 ML Nebulizer Soln SDV NEB SCH ×2 (06:33→11:22)
--- NOTE | 2020-12-15 07:11 | PCM.DCSUM1 ---
Discharge Summary - Hospital Course Free Text/Narrative:: 1. Acute community-acquired pneumonia-continue Rocephin and azithromycin that was started in the emergency room. Also continue with DuoNeb. mucinex Oxygen, RT, I-S, Acapella IV hydration 12/14/20 mild improvement on antibiotics on 3.5 liters this am. Patient does have a significant amount of mucus plugging. We will give Mucomyst at least once but we will try to schedule this and possibly reduce his O2 requirements. The patient is requesting that he goes home by tomorrow. We will push for this. 12/15/20 doing great, only on 2 liters and can manage at home. Patient will go home on antibiotics, he will have appt at clinic for covid shot. Patient will follow up [facility] pcp. 2. hypokalemia-likely associated with muscle aches. Has been replaced by oral and IV in the emergency room. Will repeat labs in the a.m. 12/14 resolved 3. hyperlipidemia-continue home medications 4. Hypertension-as needed hydralazine 12/14 at home medications 5. elevated CRP-is likely reactive. Will watch labs ppx heparin full code 36 min Brief History: 65yom with pmh of smoking presents to the er with shortness of breath. Diagnosis: Stroke: No - Discharge Data Discharge Date: 12/15/20 Discharge Disposition: Home, Self-Care 01 Condition: Good - Referral to Home Health Primary Care Physician: Trinidad Vizcaino NP - Patient Summary/Data Consults: Consultations 12/13/20 16:41 OT Evaluation and Treatment [CONS] Routine PT Evaluation and Treatment [CONS] Routine - Patient Instructions Diet: Heart Healthy Diet Activity: As Tolerated Driving: May Drive Today Showering/Bathing: May Shower - Discharge Plan *PRESCRIPTION DRUG MONITORING PROGRAM REVIEWED*: Not Applicable *COPY OF PRESCRIPTION DRUG MONITORING REPORT IN PATIENT DANIA: Not Applicable Prescriptions/Med Rec: Azithromycin 250 mg PO DAILY 4 Days #4 tablet Albuterol/Ipratropium [DuoNeb 3.0-0.5 MG/3 ML] 3 ml .XX Q6H 10 Days #30 ml guaiFENesin [Mucinex] 600 mg PO Q12H #20 tab.er Cefdinir [Omnicef] 300 mg PO BID 7 Days #14 cap Albuterol Sulfate [Proair Hfa] 8.5 gm IH Q6H PRN #1 hfa.aer.ad PRN Reason: Shortness Of Breath Home Medications: Home Meds Aspirin [Halfprin] 81 mg PO DAILY 12/13/20 [History] Metoprolol Tartrate 25 mg PO BID 12/13/20 [History] Non-Formulary Medication [NF Drug] 20 ml PO DAILY 12/13/20 [History] Simvastatin 40 mg PO BEDTIME 12/13/20 [History] amLODIPine [Norvasc] 10 mg PO DAILY 12/13/20 [History] Albuterol Sulfate [Proair Hfa] 8.5 gm IH Q6H PRN #1 hfa.aer.ad 12/15/20 [Rx] Albuterol/Ipratropium [DuoNeb 3.0-0.5 MG/3 ML] 3 ml .XX Q6H 10 Days #30 ml 12/15/20 [Rx] Azithromycin 250 mg PO DAILY 4 Days #4 tablet 12/15/20 [Rx] Cefdinir [Omnicef] 300 mg PO BID 7 Days #14 cap 12/15/20 [Rx] guaiFENesin [Mucinex] 600 mg PO Q12H #20 tab.er 12/15/20 [Rx] Oxygen Therapy Mode: Nasal Cannula Oxygen Flow Rate (L/min): 2 Patient Handouts: Potassium Content of Foods, Steps to Quit Smoking, Community- Acquired Pneumonia, Adult, [id number], Sepsis, Self Care, Adult Forms: ED Department Discharge Referrals: Trinidad Vizcaino [employer] [Primary Care Provider] - - Discharge Summary/Plan Comment DC Time >30 min.: Yes Total # of Minutes for Discharge Time: 36min - Patient Data Vitals - Most Recent: Last Vital Signs Temp 98.4 F 12/15/20 03:33 Pulse 64 12/15/20 03:33 Resp 20 12/15/20 03:33 BP 151/87 H 12/15/20 03:33 Pulse Ox 92 L 12/15/20 03:33 Weight - Most Recent: 190 lb 3.2 oz I&O - Last 24 hours: Intake & Output 12/14/20 12/15/20 12/15/20 22:59 06:59 14:59 Intake Total 1550 300 Output Total 650 1000 Balance 900 -700 Med Orders - Current: Current Medications Acetaminophen (Acetaminophen 325 Mg Tab) 650 mg PO Q4H PRN PRN Reason: Pain (Mild 1-3)/fever Acetylcysteine (Acetylcysteine 20% 200 Mg/Ml 4 Ml Nebulizer Soln Sdv) 800 mg NEB Q6H [facility] Last Admin: 12/15/20 06:33 Dose: Not Given Documented by: Amlodipine Besylate (Amlodipine 5 Mg Tab) 10 mg PO DAILY [facility] Last Admin: 12/14/20 09:51 Dose: 10 mg Documented by: Aspirin (Aspirin 81 Mg Tab.Ec) 81 mg PO DAILY [facility] Last Admin: 12/14/20 09:50 Dose: 81 mg Documented by: Docusate Sodium (Docusate Sodium 100 Mg Cap) 100 mg PO Q12H PRN PRN Reason: Constipation Famotidine (Famotidine 20 Mg/2 Ml Sdv) 20 mg IVPUSH DAILY [facility] Last Admin: 12/14/20 08:24 Dose: 20 mg Documented by: Guaifenesin (Guaifenesin 600 Mg Tab.Er) 600 mg PO Q12H [facility] Last Admin: 12/14/20 22:03 Dose: 600 mg Documented by: Heparin Sodium (Porcine) (Heparin Sodium 5,000 Units/Ml Vial) 5,000 units SUBCUT Q8H [facility] Last Admin: 12/14/20 23:56 Dose: Not Given Documented by: Azithromycin 500 mg/ Sodium (Chloride) 250 mls @ 250 mls/hr IV Q24H [facility] Last Admin: 12/14/20 18:22 Dose: 250 mls/hr Documented by: Ceftriaxone Sodium 2 gm/ (Sodium Chloride) 100 mls @ 200 mls/hr IV Q24H [facility] Stop: 12/18/20 16:59 Last Admin: 12/14/20 16:19 Dose: 200 mls/hr Documented by: Metoprolol Tartrate (Metoprolol Tartrate 50 Mg Tab) 25 mg PO BID [facility] Last Admin: 12/14/20 22:03 Dose: 25 mg Documented by: Ondansetron HCl (Ondansetron 4 Mg Tab.Dis) 4 mg PO Q4H PRN PRN Reason: nausea, able to take PO Simvastatin (Simvastatin 40 Mg Tab) 40 mg PO BEDTIME [facility] Last Admin: 12/14/20 22:03 Dose: 40 mg Documented by: Sodium Chloride (Sodium Chloride 0.9% 10 Ml Syringe) 10 ml FLUSH ASDIRECTED PRN PRN Reason: Keep Vein Open Last Admin: 12/13/20 15:36 Dose: 10 ml Documented by: Discontinued Medications Ceftriaxone Sodium (Ceftriaxone 1 Gm Vial) 2 gm IV Q24H [facility] Stop: 12/18/20 16:46 Potassium Chloride 10 meq/ (Premix) 100 mls @ 100 mls/hr IV Q1H [facility] Stop: 12/13/20 22:29 Potassium Chloride/Sodium Chloride (Normal Saline With 40 Meq Kcl) 1,000 mls @ 150 mls/hr IV ASDIRECTED [facility] Last Admin: 12/14/20 08:25 Dose: 150 mls/hr Documented by: Ceftriaxone Sodium 2 gm/ (Sodium Chloride) 100 mls @ 200 mls/hr IV ONETIME ONE Stop: 12/13/20 17:03 Last Admin: 12/13/20 17:07 Dose: 200 mls/hr Documented by: Azithromycin 500 mg/ Sodium (Chloride) 100 mls @ 100 mls/hr IV Q24H [facility] Last Admin: 12/13/20 18:28 Dose: Not Given Documented by: Azithromycin 500 mg/ Sodium (Chloride) 250 mls @ 250 mls/hr IV Q24H [facility] Last Admin: 12/13/20 18:29 Dose: Not Given Documented by: Morphine Sulfate (Morphine 2 Mg/Ml Syringe) 2 mg IVPUSH Q2H PRN PRN Reason: Pain (severe 7-10) Stop: 12/14/20 16:41 Potassium Chloride (Potassium Chloride 20 Meq Tab.Er) 40 meq PO ONETIME ONE Stop: 12/13/20 16:29 Last Admin: 12/13/20 16:39 Dose: 40 meq Documented by:
[2020-12-15] MEDS: Aspirin 81 MG Tab.EC PO SCH (08:22)
[2020-12-15] MEDS: amLODIPine 5 MG Tab PO SCH (08:22)
[2020-12-15] MEDS: guaiFENesin 600 MG Tab.ER PO SCH (08:24)
[2020-12-15] MEDS: Metoprolol Tartrate 50 MG Tab PO SCH (08:25)
[2020-12-15] MEDS: Heparin Sodium 5,000 Units/ML Vial SUBCUT SCH (08:25)
[2020-12-15] MEDS: Famotidine 20 MG/2 ML SDV IVPUSH SCH (08:25)
== END 2020-12-15 11:34 | disposition home or self-care (01) | DRG 195 ==
LOC: JD.ED 14:48 → JD.MS 16:39
PROVIDERS: ADMIT Internal Medicine; ATTEND Internal Medicine
DX: J18.9 Pneumonia, unspecified organism (principal); E87.6 Hypokalemia; E78.5 Hyperlipidemia, unspecified; R09.02 Hypoxemia; R79.89 Other specified abnormal findings of blood chemistry; E78.00 Pure hypercholesterolemia, unspecified; I10 Essential (primary) hypertension; F17.210 Nicotine dependence, cigarettes, uncomplicated; Z79.82 Long term (current) use of aspirin; Z79.899 Other long term (current) drug therapy; Z20.822 Contact with and (suspected) exposure to COVID-19
CPT/HCPCS: 36415; 71045; 80053; 83880; 84484; 85025; 85379; 86140; 93005; 99285; U0002; 80048; 83605; 83735; 87040; 94640; 94667; 94668; 94762; 97161-GP; 99284; A9270-GY; J0456; J0696; J1644; J3480; J3490; J7050